=== PATIENT | male | born 1995 | race Caucasian/White ===

== ENCOUNTER 2019-09-16 02:23 | Emergency (ER) | payer MEDICAID ==
[~2019-09-16] VITALS: Ht 167.6 cm; Wt 97.5 kg
[2019-09-16 02:31] VITALS: Ht 167.6 cm; Wt 97.5 kg
[2019-09-16 04:13] VITALS: BP 130/74
== END 2019-09-16 05:14 | disposition home or self-care (01) ==
LOC: ED 02:23
DX: S02.2XXA Fracture of nasal bones, initial encounter for closed fracture (principal); Y04.0XXA Assault by unarmed brawl or fight, initial encounter; Y93.89 Activity, other specified; Y92.488 Other paved roadways as the place of occurrence of the external cause; Y99.8 Other external cause status
CPT/HCPCS: J2001

== ENCOUNTER 2019-09-17 17:09 | Emergency (ER) | payer MEDICAID ==
[~2019-09-17] VITALS: Ht 167.6 cm; Wt 98.0 kg
[2019-09-17 17:20] VITALS: Ht 167.6 cm; Wt 98.0 kg
[2019-09-17 18:42] VITALS: BP 136/86
== END 2019-09-17 18:42 | disposition home or self-care (01) ==
LOC: ED 17:09
DX: S02.2XXD Fracture of nasal bones, subsequent encounter for fracture with routine healing (principal); Y08.89XD Assault by other specified means, subsequent encounter